=== PATIENT | female | born 1990 | race Hispanic/Latino ===

== ENCOUNTER 2022-04-14 08:31 | Emergency (ER) | payer OTHER, BC ==
[2022-04-14] MEDS ORDERED: AZITHROMYCIN 250 MG TAB ONE (09:32)
[2022-04-14 09:53] LABS: SARS-COV-2 RT PCR POSITIVE (NEGATIVE)
--- NOTE | 2022-04-14 10:10 | EDPHYS ---
Physician Documentation [facility] Name: Flory Luis Age: 31 yrs Sex: Female : 1990 Arrival Date: 04/14/2022 Time: 08:34 Bed 14 Private MD: ED Physician Tico Mann HPI: 04/14 09:25 This 31 yrs old Female presents to ER via Ambulatory with complaints of Sinus wicho Congestion. 09:25 The patient or guardian reports cough, that is constant. Onset: The symptoms/episode wicho began/occurred 2 day(s) ago. Historical: - Allergies: 08:50 No Known Allergies; ww - Home Meds: 08:50 None [Active]; ww - PMHx: 08:50 None; ww - PSHx: 08:50 tubual; breast augmentation; ww - Immunization history:: Adult Immunizations not up to date. - Social history:: Smoking status: Patient denies any tobacco usage or history of. ROS: 09:28 Constitutional: Negative for fever, chills, and weight loss, Eyes: Negative for injury, wicho pain, redness, and discharge, Neck: Negative for injury, pain, and swelling, Cardiovascular: Negative for chest pain, palpitations, and edema, Respiratory: Negative for shortness of breath, cough, wheezing, and pleuritic chest pain, Abdomen/GI: Negative for abdominal pain, nausea, vomiting, diarrhea, and constipation, Back: Negative for injury and pain, : Negative for injury, bleeding, discharge, and swelling, MS/Extremity: Negative for injury and deformity, Skin: Negative for injury, rash, and discoloration, Neuro: Negative for headache, weakness, numbness, tingling, and seizure, Psych: Negative for depression, anxiety, suicide ideation, homicidal ideation, and hallucinations, Allergy/Immunology: Negative for hives, rash, and allergies, Endocrine: Negative for neck swelling, polydipsia, polyuria, polyphagia, and marked weight changes, Hematologic/Lymphatic: Negative for swollen nodes, abnormal bleeding, and unusual bruising. 09:28 ENT: Positive for rhinorrhea, sinus congestion, sinus pain. Exam: 09:28 Constitutional: This is a well developed, well nourished patient who is awake, alert, wicho and in no acute distress. Head/Face: Normocephalic, atraumatic. Eyes: Pupils equal round and reactive to light, extra-ocular motions intact. Lids and lashes normal. Conjunctiva and sclera are non-icteric and not injected. Cornea within normal limits. Periorbital areas with no swelling, redness, or edema. Neck: Trachea midline, no thyromegaly or masses palpated, and no cervical lymphadenopathy. Supple, full range of motion without nuchal rigidity, or vertebral point tenderness. No Meningismus. Chest/axilla: Normal chest wall appearance and motion. Nontender with no deformity. No lesions are appreciated. Cardiovascular: Regular rate and rhythm with a normal S1 and S2. No gallops, murmurs, or rubs. Normal PMI, no JVD. No pulse deficits. Respiratory: Lungs have equal breath sounds bilaterally, clear to auscultation and percussion. No rales, rhonchi or wheezes noted. No increased work of breathing, no retractions or nasal flaring. Abdomen/GI: Soft, non-tender, with normal bowel sounds. No distension or tympany. No guarding or rebound. No evidence of tenderness throughout. Back: No spinal tenderness. No costovertebral tenderness. Full range of motion. Skin: Warm, dry with normal turgor. Normal color with no rashes, no lesions, and no evidence of cellulitis. MS/ Extremity: Pulses equal, no cyanosis. Neurovascular intact. Full, normal range of motion. Neuro: Awake and alert, GCS 15, oriented to person, place, time, and situation. Cranial nerves II-XII grossly intact. Motor strength 5/5 in all extremities. Sensory grossly intact. Cerebellar exam normal. Normal gait. Psych: Awake, alert, with orientation to person, place and time. Behavior, mood, and affect are within normal limits. 09:28 ENT: Posterior pharynx: Airway: normal, no evidence of obstruction, Tonsils: are normal in appearance, Uvula: normal, midline, swelling, is not appreciated, erythema, that is mild, exudate, is not appreciated, peritonsillar mass, is not appreciated. Vital Signs: 08:48 BP 123 / 94; Pulse 77; Resp 18; Temp 99.2; Pulse Ox 97% on R/A; Weight 54.43 kg; Height ww 5 ft. 3 in. (160.02 cm); Pain 0/10; 09:30 BP 126 / 96; Pulse 64; Resp 18; Pulse Ox 98% on R/A; ww 10:26 BP 117 / 90; Pulse 70; Resp 18; Pulse Ox 100% on R/A; ww 08:48 Body Mass Index 21.26 (54.43 kg, 160.02 cm) ww MDM: 08:45 Patient medically screened. [facility] 09:30 Differential diagnosis: sinusitis. Differential Diagnosis: Bronchitis Influenza Upper wicho Respiratory Infection Sinusitis Pharyngitis Otitis Media Pneumonia. Data reviewed: vital signs, nurses notes, lab test result(s). Data interpreted: cafeteria monitor: rate is 77 beats/min, rhythm is regular, Pulse oximetry: on room air is 99 %. Counseling: I had a detailed discussion with the patient and/or guardian regarding: the historical points, exam findings, and any diagnostic results supporting the discharge/admit diagnosis, lab results, radiology results, the need for outpatient follow up, for definitive care, a family practitioner. 04/14 08:46 Order name: COVID-19/FLU A+B (Document "Date of Onset" if Symptomatic); Complete Time: [facility] 10:06 Administered Medications: 09:29 Drug: Zithromax (azithromycin) 500 mg Route: PO; ww Disposition Summary: 04/14/22 10:09 Discharge Ordered Location: Home [facility] Problem: new wicho Symptoms: have improved wicho Condition: Stable wicho Diagnosis - Acute upper respiratory infection, unspecified wicoh - Fever, unspecified wicho - Coronavirus infection, unspecified wicho Followup: wicho - With: Private Physician - When: 2 - 3 days - Reason: Recheck today's complaints, Continuance of care, Re-evaluation by your physician Discharge Instructions: - Discharge Summary Sheet wicho - Fever, Adult wicho - Upper Respiratory Infection, Adult wicho - Cool Mist Vaporizer wicho - Upper Respiratory Infection, Adult, [id number] wicho - Aspirin and Your Heart wicho - COVID-19 wicho Forms: - Medication Reconciliation Form wicho - Thank You Letter wicho - Antibiotic Education wicho - Prescription Opioid Use wicho Prescriptions: - Zithromax 500 mg Oral Tablet - take 1 tablet by ORAL route once daily for 5 days; 5 tablet; Refills: 0, wicho Product Selection Permitted - Bromfed DM 2-30-10 mg/5 mL Oral syrup - take 7.5 milliliter by ORAL route every 6 hours; 200 milliliter; Refills: 0, jmm Product Selection Permitted - Paxlovid - take 3 tablets by ORAL route 2 times per day for 10 days; 30 tablet; Refills: jmm 0, Product Selection Permitted Signatures: Dispatcher [employer] Tico Wade MD MD cha Wood, Whitney RN RN ww
--- NOTE | 2022-04-14 10:10 | ER ---
Nurse's Notes [facility] Name: Flory Luis Age: 31 yrs Sex: Female : 1990 Arrival Date: 04/14/2022 Time: 08:34 Bed 14 Private MD: Diagnosis: Acute upper respiratory infection, unspecified;Fever, unspecified;Coronavirus infection, unspecified Presentation: 04/14 08:48 Chief complaint: Patient states: Fever, headache, sweating, swollen tonsils, green ww mucus that started on Thursday at 0500. Took Amoxicillin from an old prescription. Coronavirus screen: Client denies travel out of the [place] in the last 14 days. Ebola Screen: Patient denies travel to an Ebola-affected area in the 21 days before illness onset. Initial Sepsis Screen: Does the patient meet any 2 criteria? No. Patient's initial sepsis screen is negative. Does the patient have a suspected source of infection? No. Patient's initial sepsis screen is negative. Risk Assessment: Do you want to hurt yourself or someone else? Patient reports no desire to harm self or others. Onset of symptoms was April 12, 2022. 08:48 Method Of Arrival: Ambulatory ww 08:48 Acuity: ENRICO 4 ww Triage Assessment: 08:50 General: Appears in no apparent distress. Behavior is calm, cooperative. Pain: ww Complains of pain in uvula, left aspect of posterior pharynx and right aspect of posterior pharynx. EENT: Reports difficulty swallowing nasal discharge that is green pain in uvula, left aspect of posterior pharynx and right aspect of posterior pharynx. Neuro: Level of Consciousness is awake, alert, obeys commands, Oriented to person, place, time, situation, Moves all extremities. Gait is steady, Speech is normal. Cardiovascular: Capillary refill < 3 seconds Patient's skin is warm and dry. Chest pain is denied. Respiratory: Airway is patent Respiratory effort is even, unlabored, Respiratory pattern is regular, symmetrical. GI: No signs and/or symptoms were reported involving the gastrointestinal system. : No signs and/or symptoms were reported regarding the genitourinary system. Derm: No signs and/or symptoms reported regarding the dermatologic system. Skin is intact, is healthy with good turgor. Musculoskeletal: No signs and/or symptoms reported regarding the musculoskeletal system. Historical: - Allergies: 08:50 No Known Allergies; ww - Home Meds: 08:50 None [Active]; ww - PMHx: 08:50 None; ww - PSHx: 08:50 tubual; breast augmentation; ww - Immunization history:: Adult Immunizations not up to date. - Social history:: Smoking status: Patient denies any tobacco usage or history of. Screenin:52 Abuse screen: Denies threats or abuse. Denies injuries from another. Nutritional ww screening: No deficits noted. Tuberculosis screening: No symptoms or risk factors identified. Fall Risk None identified. Assessment: 08:52 Reassessment: Patient appears in no apparent distress at this time. No changes from ww previously documented assessment. Patient and/or family updated on plan of care and expected duration. Pain level reassessed. Patient is alert, oriented x 3, equal unlabored respirations, skin warm/dry/pink. see triage assessment. 09:40 Reassessment: Patient appears in no apparent distress at this time. No changes from ww previously documented assessment. Patient and/or family updated on plan of care and expected duration. Pain level reassessed. Patient is alert, oriented x 3, equal unlabored respirations, skin warm/dry/pink. 10:14 Reassessment: Patient appears in no apparent distress at this time. No changes from ww previously documented assessment. Patient and/or family updated on plan of care and expected duration. Pain level reassessed. Patient is alert, oriented x 3, equal unlabored respirations, skin warm/dry/pink. Vital Signs: 08:48 BP 123 / 94; Pulse 77; Resp 18; Temp 99.2; Pulse Ox 97% on R/A; Weight 54.43 kg; Height ww 5 ft. 3 in. (160.02 cm); Pain 0/10; 09:30 BP 126 / 96; Pulse 64; Resp 18; Pulse Ox 98% on R/A; ww 10:26 BP 117 / 90; Pulse 70; Resp 18; Pulse Ox 100% on R/A; ww 08:48 Body Mass Index 21.26 (54.43 kg, 160.02 cm) ED Course: 08:34 Patient arrived in ED. mr 08:38 Arm band placed on Patient placed in an exam room, on a stretcher. ll1 08:45 Tico Mann MD is Attending Physician. [facility] 08:45 Patricia Galaviz, RN is Primary Nurse. ww 08:50 Triage completed. ww 08:52 Patient has correct armband on for positive identification. Bed in low position. Call ww light in reach. Side rails up X 1. 10:27 No provider procedures requiring assistance completed. Patient did not have IV access ww during this emergency room visit. Administered Medications: : Drug: Zithromax (azithromycin) 500 mg Route: PO; ww Medication: :52 VIS not applicable for this client. ww Outcome: : Discharge ordered by . [facility] 10:27 Discharged to home ambulatory. ww 10: Condition: stable 10:27 Discharge instructions given to patient, Instructed on discharge instructions, follow up and referral plans. medication usage, safety practices, Demonstrated understanding of instructions, follow-up care, medications, Prescriptions given X 3. 10:27 Patient left the ED. ww Signatures: Tico Mann MD MD cha Rivera, Mary Larissa Mancilla RN RN 1 Patricia Galaviz, RN RN
[2022-04-14 10:49] VITALS: TEMP 99.2
[2022-04-14 10:53] VITALS: BP 117/90; O2SAT 100
== END 2022-04-14 10:27 | disposition home or self-care (01) ==
LOC: ER 08:31
DX: U07.1 COVID-19 (principal); J06.9 Acute upper respiratory infection, unspecified; R50.9 Fever, unspecified
CPT/HCPCS: 0240U; 99283